=== PATIENT | female | born 1960 | race Caucasian/White ===

== ENCOUNTER 2017-05-06 21:03 | Emergency (ER) | payer MEDICAID | END 2017-05-06 22:03 | disposition home or self-care (01) | LOC: D.ER 21:03 | DX: R07.89 Other chest pain (principal); W10.9XXA Fall (on) (from) unspecified stairs and steps, initial encounter; Y93.89 Activity, other specified; Y92.029 Unspecified place in mobile home as the place of occurrence of the external cause ==

== ENCOUNTER 2017-07-15 16:17 | Emergency (ER) | payer MEDICAID | END 2017-07-15 18:09 | disposition home or self-care (01) | LOC: D.ER 16:17 | DX: S16.1XXA Strain of muscle, fascia and tendon at neck level, initial encounter (principal); X58.XXXA Exposure to other specified factors, initial encounter; Y93.89 Activity, other specified; Y92.89 Other specified places as the place of occurrence of the external cause; M79.602 Pain in left arm ==

== ENCOUNTER 2017-08-05 17:44 | Emergency (ER) | payer MEDICAID | END 2017-08-05 20:13 | disposition home or self-care (01) | LOC: D.ER 17:44 | DX: S43.402A Unspecified sprain of left shoulder joint, initial encounter (principal); W01.0XXA Fall on same level from slipping, tripping and stumbling without subsequent striking against object, initial encounter; Y93.89 Activity, other specified; Y92.019 Unspecified place in single-family (private) house as the place of occurrence of the external cause; S16.1XXA Strain of muscle, fascia and tendon at neck level, initial encounter ==

== ENCOUNTER 2017-08-26 15:04 | Emergency (ER) | payer MEDICAID | END 2017-08-26 17:34 | disposition left against medical advice (07) | LOC: D.ER 15:04 | DX: T23.072A Burn of unspecified degree of left wrist, initial encounter (principal); X10.1XXA Contact with hot food, initial encounter; Y93.89 Activity, other specified; Y92.019 Unspecified place in single-family (private) house as the place of occurrence of the external cause ==

== ENCOUNTER 2017-12-23 08:25 | Emergency (ER) | payer MEDICAID ==
[~2017-12-23] VITALS: Ht 162.6 cm; Wt 54.5 kg
[2017-12-23 08:30] VITALS: Ht 162.6 cm; Wt 54.5 kg
[2017-12-23] MEDS ORDERED: NORCO 7.5/325 T1 TA1 PO (10:02)
[2017-12-23 10:26] VITALS: BP 124/58
== END 2017-12-23 10:12 | disposition home or self-care (01) ==
LOC: D.ER 08:25
DX: S52.502A Unspecified fracture of the lower end of left radius, initial encounter for closed fracture (principal); W19.XXXA Unspecified fall, initial encounter; Y93.89 Activity, other specified; Y92.019 Unspecified place in single-family (private) house as the place of occurrence of the external cause

== ENCOUNTER 2018-01-03 00:54 | Emergency (ER) | payer MEDICAID ==
[~2018-01-03] VITALS: Ht 162.6 cm; Wt 56.8 kg
[~2018-01-03 00:54] MED LIST: NORCO 7.5/325 T1 TA1 PO
[2018-01-03 01:03] VITALS: Ht 162.6 cm; Wt 56.8 kg
[2018-01-03] MEDS ORDERED: TYLENOL W/CODEI1 TAB PO (01:42)
[2018-01-03] MEDS ORDERED: HYDROCODONE-APA1 TAB PO (01:50)
[2018-01-03 02:03] VITALS: BP 132/76
== END 2018-01-03 02:04 | disposition home or self-care (01) ==
LOC: D.ER 00:54
DX: S62.102G Fracture of unspecified carpal bone, left wrist, subsequent encounter for fracture with delayed healing (principal); W19.XXXD Unspecified fall, subsequent encounter; M25.552 Pain in left hip

== ENCOUNTER 2018-03-02 23:47 | Emergency (ER) | payer MEDICAID ==
[~2018-03-02] VITALS: Ht 162.6 cm; Wt 54.5 kg
[~2018-03-02 23:47] MED LIST changes: +HYDROCODONE-APA1 TAB PO; +TYLENOL W/CODEI1 TAB PO
[2018-03-02 23:52] VITALS: Ht 162.6 cm; Wt 54.5 kg
[2018-03-03] MEDS ORDERED: TORADOL10 MG PO (02:07)
[2018-03-03] MEDS ORDERED: ROBAXIN500 MG PO (02:07)
[2018-03-03 03:17] VITALS: BP 148/91
== END 2018-03-03 02:50 | disposition home or self-care (01) ==
LOC: D.ER 23:47
DX: S20.211A Contusion of right front wall of thorax, initial encounter (principal); S60.212A Contusion of left wrist, initial encounter; Y04.2XXA Assault by strike against or bumped into by another person, initial encounter; Y93.89 Activity, other specified; Y92.019 Unspecified place in single-family (private) house as the place of occurrence of the external cause

== ENCOUNTER 2019-10-14 18:50 | Inpatient (IN) | payer MEDICAID ==
[~2019-10-14] VITALS: Ht 170.2 cm; Wt 59.0 kg
[~2019-10-14 18:50] MED LIST changes: +ROBAXIN500 MG PO; +TORADOL10 MG PO
[2019-10-14 19:27] LABS: BASOPHILS 0.2 % (0-2); EOSINOPHILS 0.4 % (0-7); HEMATOCRIT 39.9 % (36.0-48.0); IMMATURE GRANULOCYTES 0.3 % (0-5); LYMPHOCYTES 19.6 % (15-50); MCHC 32.6 g/dL (31.0-37.0); MCV 82.8 fL (80.0-100.0); MEAN PLATELET VOLUME 8.6 fL (7.4-10.4); MONOCYTES 6.9 % (2-11); NEUTROPHILS 72.6 % (40-80); PLATELET COUNT 407 10x3/uL (130-400); RBC 4.82 10x6/uL (4.00-5.40); RDW 14.8 % (11.5-14.5); WBC 13.7 10x3/uL (4.8-10.8)
[2019-10-14 19:34] LABS: CALC OSMOLALITY 272 mosm/kg (275-300); CALCIUM 9.4 mg/dL (8.5-10.1); CARBON DIOXIDE 25.7 mmol/L (21.0-32.0); CHLORIDE - SERUM 99 mmol/L (98-107); CREATININE - SERUM 0.8 mg/dL (0.6-1.3); GLUCOSE 131 mg/dL (74-106); POTASSIUM - SERUM 3.1 mmol/L (3.5-5.1); SODIUM 135 mmol/L (136-145); UREA NITROGEN 14 mg/dL (7-18); eGFR NON AFRICAN AMERICAN 78 mL/min (90-120)
[2019-10-14 19:40] LABS: ALBUMIN 3.9 g/dL (3.4-5.0); ALKALINE PHOSPHATASE 96 U/L (30-120); ALT (SGPT) 12 U/L (10-68); BILIRUBIN - TOTAL 0.38 mg/dL (0.2-1.3); LIPASE 154 U/L (73-393); PROTEIN - SERUM 8.1 g/dL (6.4-8.2)
[2019-10-14 21:29] LABS: BILIRUBIN NEGATIVE (NEGATIVE); GLUCOSE NEGATIVE (NEGATIVE); KETONE NEGATIVE (NEGATIVE); NITRITE NEGATIVE (NEGATIVE); UROBILINOGEN NORMAL (NORMAL)
[2019-10-14 21:31] LABS: BACTERIA FEW /hpf (NEGATIVE); EPITHELIAL CELLS 0-5 /hpf (0-5); RED CELLS - URINE RARE /hpf (0-5)
--- NOTE | 2019-10-14 22:00 | NUR ---
PT C/O WANTED ME TO CONTACT ADAM HER LANDLORD [phone], NO ANSWER, MESSAGE LEFT.
--- NOTE | 2019-10-14 22:22 | NUR ---
RECEIVED PATIENT TO FLOOR. NGT TO THE RIGHT BARRIGA. PLACED TO LOW INTERMITTENT SUCTION. PATIENT IS DROWSY, BUT ANSWERS QUESTIONS APPROPRIATELY. LEFT AC IV THAT IS INFUSING NS. DENIES NEEDS AT THIS TIME. CPOC.
[2019-10-14 23:54] VITALS: BP 147/85; BMI 20.4
--- NOTE | 2019-10-15 00:59 | NUR ---
RESTING WITH EYES CLOSED. NGT IS SUCTIONING DARK GASTRIC CONTENTS. CPOC.
[2019-10-15 04:00] VITALS: BP 145/83
--- NOTE | 2019-10-15 08:00 | NUR ---
ALERT AND ORIENTED X4. PATINET HAS PERIODS OF ANXIETY WELL ABDOMINAL PAIN 6/10 WHICH IS RELEIVED WITH ATIVAN AND MORPHINE PRN. ABDOMEN SOFT WITH BOWEL SOUNDS NOTED WITH EPGASTIC PAIN.IVF INFUSING TO LEFT A/C WITH NO S/S OF INFECTION/INFILTRATION. ENCOURAGED TO USE CALL LIGHT FOR ASSSIT.
[2019-10-15 08:33] VITALS: BP 156/93
[2019-10-15 10:25] LABS: BASOPHILS 0.3 % (0-2); EOSINOPHILS 1.4 % (0-7); HEMATOCRIT 32.5 % (36.0-48.0); HEMOGLOBIN 10.5 g/dL (12-16); IMMATURE GRANULOCYTES 0.2 % (0-5); LYMPHOCYTES 34.5 % (15-50); MCH 26.8 pg (26.0-34.0); MCHC 32.3 g/dL (31.0-37.0); MCV 82.9 fL (80.0-100.0); MEAN PLATELET VOLUME 8.5 fL (7.4-10.4); MONOCYTES 7.1 % (2-11); NEUTROPHILS 56.5 % (40-80); RBC 3.92 10x6/uL (4.00-5.40); RDW 14.7 % (11.5-14.5); WBC 6.6 10x3/uL (4.8-10.8)
[2019-10-15 10:26] LABS: PLATELET COUNT 264 10x3/uL (130-400)
[2019-10-15 10:36] LABS: ALKALINE PHOSPHATASE 73 U/L (30-120); ALT (SGPT) 13 U/L (10-68); BILIRUBIN - TOTAL 0.38 mg/dL (0.2-1.3); CALCIUM 8.1 mg/dL (8.5-10.1); CARBON DIOXIDE 23.2 mmol/L (21.0-32.0); CHLORIDE - SERUM 109 mmol/L (98-107); CREATININE - SERUM 0.6 mg/dL (0.6-1.3); GLUCOSE 91 mg/dL (74-106); POTASSIUM - SERUM 3.5 mmol/L (3.5-5.1); PROTEIN - SERUM 6.1 g/dL (6.4-8.2); SODIUM 140 mmol/L (136-145); eGFR NON AFRICAN AMERICAN > 90 mL/min (90-120)
[2019-10-15 10:38] LABS: ALBUMIN 2.8 g/dL (3.4-5.0); CALC OSMOLALITY 277 mosm/kg (275-300); UREA NITROGEN 9 mg/dL (7-18)
[2019-10-15 11:30] VITALS: BP 134/78
--- NOTE | 2019-10-15 14:32 | NUR ---
CONFIGURATION TECHNICIAN KUB OBTAINED AT 14:19 FOR SMALL BOWEL SERIES TO CHECK FOR NG TUBE PLACEMENT BEFORE GIVEN CONTRAST. PER DR SALDIVAR VIA VERBAL , ADVANCE NG TUBE 4 CM BEFORE GIVING CONTRAST THRU NG TUBE. INSTRUCTIONS GIVEN TO NURSE CHERI AT 14.30.
[2019-10-15 16:00] VITALS: BP 138/80
--- NOTE | 2019-10-15 19:00 | NUR ---
BEDSIDE REPORT RECEIVED AND CARE OF PT ASSUMED. PT LYING IN LOW CALLAHAN'S POSITION WITH EYES CLOSED. NG TUBE TO RIGHT NARE CONNECTED TO LIS WITH SMALL AMOUNT OF DARK DRAINAGE IN COLLECTION CANNISTER. IV TO LEFT AC PATENT WITH MVI INFUSING AT 125 ML/HR.. WILL MONITOR FOR NEEDS.
[2019-10-15 19:37] VITALS: BP 139/76
--- NOTE | 2019-10-15 21:00 | NUR ---
SMALL BOWEL SERIES EXAM CLOSED . REEVALUATE FURTHER WITH A KUB IN 2 HRS @ 2300 FOR CONTRAST PURPOSES PER DR SALDIVAR. IF NEED , GET ADDITIONAL KUB IN THE AM ON 10/15.
--- NOTE | 2019-10-15 21:15 | NUR ---
LEAVING NG TUBE IN PLACE FOR TONIGHT PER RADIOLOGY, IN CASE ADDITIONAL PROCEDURE IS SCHEDULED FOR AM.
--- NOTE | 2019-10-15 23:15 | NUR ---
OFFERED TO START ENEMAS SEVERAL TIMES THIS SHIFT BUT PT DECLINES AND WANTS TO WAIT TILL ALL IMAGING IS COMPLETE. THEN WANTED TO HAVE PAIN / ANXIETY MED ON BOARD "FOR A WHILE" UNTIL WE COULD PROCEED.
--- NOTE | 2019-10-16 01:23 | NUR ---
ASSISTED PT UP TO RESTROOM TO VOID. ASKED PT IF I CAN PERFORM ENEMAS AT THIS TIME AND SHE REFUSED...WANTS TO WAIT TILL MORNING.
[2019-10-16 04:07] VITALS: BP 136/87
[2019-10-16 08:16] VITALS: BP 155/81
--- NOTE | 2019-10-16 09:25 | NUR ---
PT RESTING IN BED WITH EYES CLOSED. PT AWAKEN TO DISCONTINUE NG TUBE PER MD ORDERS. PT INITIALLY REFUSES, STATES, "YOU ARENT DOING IT UNTIL I CAN HAVE PAIN MEDICATION OR ATIVAN." INSTRUCTED PT DR ORDERS HAD BEEN RECEIVED TO DISCONTINUE NG TUBE AT THIS TIME AND PAIN MEDICATIONS WERE NOT DUE TO BE RECEIVED UNTIL AFTER 10 AM. PT AGREES TO ALLOW STAFF TO DISCONTINUE NG TUBE AT THIS TIME. NG REMOVED FROM RIGHT NARE TUBING INTACT. PT SHEREEN WELL. ALSO ADMINISTERED 2 DULCOLAX SUPPOSITORIES AT THIS TIME. PT CONTINUES TO REFUSE ENEMAS PREVIOUSLY ORDERED. IV TO LEFT AC WITH NS @ 125ML/HR INFUSING VIA PUMP. 500ML BOLUS INITIATED AT THIS TIME. CL WITHIN REACH. ENCOURAGED TO CALL WITH NEEDS. CONTINUE POC
[2019-10-16 10:07] LABS: ALBUMIN 2.9 g/dL (3.4-5.0); ALKALINE PHOSPHATASE 84 U/L (30-120); ALT (SGPT) 12 U/L (10-68); BILIRUBIN - TOTAL 0.48 mg/dL (0.2-1.3); CARBON DIOXIDE 23.8 mmol/L (21.0-32.0); CHLORIDE - SERUM 105 mmol/L (98-107); CREATININE - SERUM 0.6 mg/dL (0.6-1.3); POTASSIUM - SERUM 3.6 mmol/L (3.5-5.1); PROTEIN - SERUM 6.5 g/dL (6.4-8.2); SODIUM 136 mmol/L (136-145); eGFR NON AFRICAN AMERICAN > 90 mL/min (90-120)
[2019-10-16 10:10] LABS: CALC OSMOLALITY 270 mosm/kg (275-300); GLUCOSE 65 mg/dL (74-106); UREA NITROGEN 15 mg/dL (7-18)
[2019-10-16 10:16] LABS: BASOPHILS 0.2 % (0-2); EOSINOPHILS 0.7 % (0-7); HEMOGLOBIN 10.4 g/dL (12-16); IMMATURE GRANULOCYTES 0.2 % (0-5); LYMPHOCYTES 20.4 % (15-50); MCH 26.9 pg (26.0-34.0); MCHC 31.5 g/dL (31.0-37.0); MEAN PLATELET VOLUME 8.8 fL (7.4-10.4); MONOCYTES 7.5 % (2-11); RBC 3.87 10x6/uL (4.00-5.40); RDW 14.9 % (11.5-14.5)
[2019-10-16 10:17] LABS: MCV 85.3 fL (80.0-100.0); PLATELET COUNT 321 10x3/uL (130-400); WBC 8.5 10x3/uL (4.8-10.8)
--- NOTE | 2019-10-16 10:30 | NUR ---
PT RESTING WITH EYES CLOSED. RESP EVEN AND UNLABORED.
--- NOTE | 2019-10-16 11:30 | NUR ---
PT RESTING WITH EYES CLOSED. RESP EVEN AND UNLABORED.
--- NOTE | 2019-10-16 12:10 | NUR ---
PT SITTING UP IN BED CONSUMING CLEAR LIQUID DIET. PT INFORMED STAFF, "I'M HURTING AND MY ATIVAN WILL BE DUE AT 1230". INFORMED PT THAT PREVIOUSLY PRESCRIBED PAIN MEDICATION AND ATIVAN WERE ON HOLD AT THIS TIME. SHE VOICED "JULIETA GOT TO GET OUT OF HERE. I HAVENT HAD GOOD SLEEP LIKE THIS IN 12 OR 14 DAYS AND WITH THIS MEDICINE, I HAVE BEEN ABLE TO GET SOME SLEEP. IF IM NOT GOING TO GET THE MEDICINE I NEED THEN I AM GOING HOME." THEN PT REQUEST ANOTHER JELLO. ENCOURAGED TO TALK WITH MD UPON ROUNDING REGARDING MEDICATIONS. PT VOICES UNDERSTANDING AND SETTLES DOWN. DENIES FURTHER NEEDS AT THIS TIME. CL WITHIN REACH. ENCOURAGED TO CALL WITH NEEDS.
[2019-10-16 12:21] VITALS: Ht 170.2 cm; Wt 59.0 kg
[2019-10-16 13:39] VITALS: BP 129/82
[2019-10-16 16:20] VITALS: BP 144/89
--- NOTE | 2019-10-16 19:00 | NUR ---
BEDSIDE REPORT RECEIVED AND CARE OF PT ASSUMED. PT LYING IN SUPINE POSITION WITH EYES CLOSED. IV TO LEFT AC PATENT WITH NS INFUSING AT 125 ML/HR. WILL MONITOR FOR NEEDS.
[2019-10-16 20:00] VITALS: BP 150/77
--- NOTE | 2019-10-16 20:49 | NUR ---
HS MEDICATIONS GIVEN. WILL CONTINUE TO MONITOR FOR NEEDS.
--- NOTE | 2019-10-16 21:27 | NUR ---
PT MAD ABOUT PAIN / ANXIETY MEDS BEING DISCONTINUED. TRIED TO EDUCATE HER ON WHY SHE WAS HERE AND THAT NARCOTICS WILL WORSEN THE PROBLEM. VERY MAD AND YELLING AT THIS NURSE. WILL CONTINUE TO MONITOR FOR NEEDS.
--- NOTE | 2019-10-16 23:52 | NUR ---
RECEIVED ORDER FOR TYLENOL 650 PO Q6 PRN FOR PT C/O NECK PAIN. WILL MONITOR FOR EFFECTIVENESS.
[2019-10-17 04:00] VITALS: BP 121/68
[2019-10-17 05:10] LABS: ALBUMIN 2.4 g/dL (3.4-5.0); ALKALINE PHOSPHATASE 68 U/L (30-120); ALT (SGPT) 9 U/L (10-68); BASOPHILS 0.4 % (0-2); BILIRUBIN - TOTAL 0.33 mg/dL (0.2-1.3); CALCIUM 7.7 mg/dL (8.5-10.1); CARBON DIOXIDE 22.3 mmol/L (21.0-32.0); CHLORIDE - SERUM 107 mmol/L (98-107); CREATININE - SERUM 0.5 mg/dL (0.6-1.3); EOSINOPHILS 2.2 % (0-7); HEMATOCRIT 29.7 % (36.0-48.0); HEMOGLOBIN 9.5 g/dL (12-16); IMMATURE GRANULOCYTES 0.4 % (0-5); LYMPHOCYTES 39.4 % (15-50); MAGNESIUM - SERUM 1.9 mg/dL (1.8-2.4); MCH 26.4 pg (26.0-34.0); MEAN PLATELET VOLUME 10.2 fL (7.4-10.4); NEUTROPHILS 49.6 % (40-80); PHOSPHOROUS 2.5 mg/dL (2.5-4.9); POTASSIUM - SERUM 3.2 mmol/L (3.5-5.1); PROTEIN - SERUM 5.5 g/dL (6.4-8.2); RDW 14.5 % (11.5-14.5); SODIUM 139 mmol/L (136-145); eGFR NON AFRICAN AMERICAN > 90 mL/min (90-120)
[2019-10-17 05:11] LABS: MCV 82.5 fL (80.0-100.0); PLATELET COUNT 152 10x3/uL (130-400); WBC 5.1 10x3/uL (4.8-10.8)
[2019-10-17 05:19] LABS: CALC OSMOLALITY 275 mosm/kg (275-300); GLUCOSE 99 mg/dL (74-106); UREA NITROGEN 6 mg/dL (7-18)
--- NOTE | 2019-10-17 07:34 | NUR ---
AWAKE AND ALERT. ORIENTED X3. NO C/O AT THIS TIME. LUNGS ARE CLEAR BILATERALLY, NO COUGH NOTED. SKIN IS INTACT WITHOUT REDNESS. IV TO LEFT WRIST IS PATENT WITHOUT REDNESS AT INSERTION SITE. BOWEL SOUNDS POSITIVE. DENIES NEEDS.
[2019-10-17 08:55] VITALS: BP 119/75
--- NOTE | 2019-10-17 09:34 | NUR ---
GIVEN DULCOLAX SUPPOSITORY PER ORDERS ALONG WITH AM MEDS WITHOUT DIFFICULTY.
--- NOTE | 2019-10-17 10:00 | NUR ---
HAD LARGE VOLUMN OF DARK LOOSE STOOL. ASSISTED TO SHOWER PER STAFF. OFF UNIT VIA WC FOR CT.
--- NOTE | 2019-10-17 10:20 | NUR ---
RETURNED FROM CT SCAN. DENIES NEEDS.
[2019-10-17] MEDS ORDERED: FLORAJEN3 CAPS460 MG PO (16:30)
[2019-10-17 16:55] VITALS: BP 146/79
--- NOTE | 2019-10-17 17:09 | MORECARE ---
CASE MANAGEMENT DISCHARGE SUMMARY PATIENT: JUAN GOODSON UNIT: [id number] ADM DATE: 10/14/19 AGE: 59 : 60 SEX: F ROOM/BED: D.2204 AUTHOR: LEATHA VERMA PHYSICIAN: REFERRING PHYSICIAN: RONNELL SEGOVIA MD DATE OF SERVICE: 10/17/19 Discharge Plan Patient Name: JUAN GOODSON Facility: [facility]:[place] : 1960 Planned Disposition: Home Anticipated Discharge Date: Discharge Date: Expected LOS: Initial Reviewer: [email or web address] Initial Review Date: 10/14/2019 Generated: 10/17/19 6:09 pm Patient Name: JUAN GOODSON Page [phone] at 1700 All edits/amendments must be made on the electronic document DICTATION DATE: 10/17/191708 GRIP WRAPPER: TORSTEN 10/17/191708 RPT#: [id number] DC DATE: STATUS: ADM IN [facility] [address] [place] [address] END OF REPORT
--- NOTE | 2019-10-17 17:17 | MORECARE ---
CASE MANAGEMENT DISCHARGE SUMMARY PATIENT: JUAN GOODSON UNIT: [id number] ADM DATE: 10/14/19 AGE: 59 : 60 SEX: F ROOM/BED: D.2204 AUTHOR: LEATHA VERMA PHYSICIAN: REFERRING PHYSICIAN: RONNELL SEGOVIA MD DATE OF SERVICE: 10/17/19 Discharge Plan Patient Name: JUAN GOODSON Facility: [facility]:[place] : 1960 Planned Disposition: Home Anticipated Discharge Date: Discharge Date: Expected LOS: Initial Reviewer: [email or web address] Initial Review Date: 10/14/2019 Generated: 10/17/19 6:16 pm DCPIA - Discharge Planning Initial Assessment Updated by [email or web address]: Lia Lennon on 10/17/19 5:10 pm * Is the patient Alert and Oriented? Yes * How many steps to enter\exit or inside your home? * PCP MOHAN CASTRO * Pharmacy [facility] * Preadmission Environment Home Alone * ADLs Independent * Equipment None * List name and contact numbers for known caregivers / representatives who currently or will assist patient after discharge: ANDRIY MONTANO [facility] [phone] * Verbal permission to speak to the caregivers and representatives has been obtained from the patient. N/A * Community resources currently utilized None * Additional services required to return to the preadmission environment? No * Can the patient safely return to the preadmission environment? Yes * Has this patient been hospitalized within the prior 30 days at any hospital? No Last DP export: 10/17/19 4:09 p Patient Name: JUAN GOODSON Page [phone] at 1717 All edits/amendments must be made on the electronic document DICTATION DATE: 10/17/191715 EXECUTIVE SECRETARY SOCIAL WELFARE: TORSTEN 10/17/191715 RPT#: [id number] DC DATE: STATUS: ADM IN [facility] [address] [place] [address] END OF REPORT
--- NOTE | 2019-10-17 17:24 | MORECARE ---
CASE MANAGEMENT DISCHARGE SUMMARY PATIENT: JUAN GOODSON UNIT: [id number] ADM DATE: 10/14/19 AGE: 59 : 60 SEX: F ROOM/BED: D.2204 AUTHOR: LUCI,DOC PHYSICIAN: REFERRING PHYSICIAN: RONNELL SEGOVIA MD DATE OF SERVICE: 10/17/19 Discharge Plan Patient Name: JUAN GOODSON Facility: [facility]:[place] : 1960 Planned Disposition: Home Anticipated Discharge Date: Discharge Date: Expected LOS: Initial Reviewer: [email or web address] Initial Review Date: 10/14/2019 Generated: 10/17/19 6:24 pm Comments DCP- Discharge Planning Updated by [email or web address]: Lia Lennon on 10/17/19 4:[address] Patient Name: JUAN GOODSON Admission Status: ER Accout number: [id number] Admission Date: 10-14-2019 : 1960 Admission Diagnosis:UNSPECIFIED ABDOMINAL PAIN Attending: RONNELL SEGOVIA Current LOS: 3 Anticipated DC Date: Planned Disposition: Home Primary Insurance: MEDICAID [place] Discharge Planning Comments: CM met with patient to complete initial dc planning assessment. CM educated patient on the CM role and verbal consent given by patient to complete assessment. Patient lives at home alone. At discharge patient plans to return home and feels this is a safe discharge. CM discussed availability of home health, rehab services, and medical equipment. Patient denied known discharge needs at this time. Patient requested phone number to Social Security Office. CM looked up number and brought it back to patient. CM will continue to follow and will assist as needed with dc plans/needs. Reformatory Attendant: Lia Lennon DCPIA - Discharge Planning Initial Assessment Updated by [email or web address]: Lia Lennon on 10/17/19 5:10 pm * Is the patient Alert and Oriented? Yes * How many steps to enter\exit or inside your home? * PCP MOHAN CASTRO * Pharmacy [facility] * Preadmission Environment Home Alone * ADLs Independent * Equipment None * List name and contact numbers for known caregivers / representatives who currently or will assist patient after discharge: ANDRIY MONTANO - BROTHER - [phone] * Verbal permission to speak to the caregivers and representatives has been obtained from the patient. N/A * Community resources currently utilized None * Additional services required to return to the preadmission environment? No * Can the patient safely return to the preadmission environment? Yes * Has this patient been hospitalized within the prior 30 days at any hospital? No Last DP export: 10/17/19 4:17 p Patient Name: JUAN GOODSON Page [phone] at 1724 All edits/amendments must be made on the electronic document DICTATION DATE: 10/17/191723 PRE KINDERGARTEN TEACHER: TORSTEN 10/17/191723 RPT#: [id number] DC DATE: STATUS: ADM IN [facility] [address] [place] [address] END OF REPORT
--- NOTE | 2019-10-17 19:18 | NUR ---
PATIENT REPORTS SHE FEELS ONE OF HER EPISODES COMMING ON AND DOESN'T WANT TO GO HOME TONIGHT. ALSO SAYS SOME NAUSEA AFTER EATING. DENIES NEEDS. NO CHANGES NOTED.
[2019-10-17 23:40] VITALS: BP 141/88
[2019-10-18 00:30] VITALS: BP 145/97
--- NOTE | 2019-10-18 02:02 | NUR ---
CALLED TO PATIENTS ROOM, BY VETERINARY INSPECTOR STATED THAT PT STATED SHE WANTED TO HAVE HERE IV FLUIDS TRUNED OFF SO SHE COULD GET SICK. WENT TO ROOM PT. STATED THAT SHE WANTED HER IV UNHOOKED SO SHE COULD GET SICK. EDUCATED PT THAT SHE NEEDED HER IV FLUIDS THAT THE DR ORDERED THEM FOR A REASION. I CAN'T JUST STOP GIVING THEM TO YOU. SHE STATED YOU CAN IF I REFUSE THEM AND I DO. I WANT TO GET SICK SO THEY CAN SEE THAT I GET SICK. IV TRUNED OFF.
--- NOTE | 2019-10-18 02:40 | NUR ---
CALL TO SPORTS COORDINATOR FOR B/P OF 145/97 NEW ORDER FOR HYDRALAZINE 10MD PO Q 6 HR PRN FOR SBP GREATER THAN 170 OR DBP GREATER THAN 100. INFOREME OD PT REFUSAL TO KEEP IV WITH FLUIDS RUNNING.
--- NOTE | 2019-10-18 04:18 | NUR ---
PT UP AND DOWN TO VENDING BACK WITH POPCORN,CANDY, AND SODA. THIS IS 2ED TIME THIS SHIFT.
--- NOTE | 2019-10-18 04:28 | NUR ---
REFUSED AM LABS
[2019-10-18 04:30] VITALS: BP 153/88
--- NOTE | 2019-10-18 07:25 | NUR ---
PT IS RESTING IN BED WITH EYES CLOSED. RESPIRATIONS ARE EVEN AND UNLABORED. PT IS EASILY AROUSED WITH VERBAL STIMULATION. PT IS AAO X 4 UPON AROUSAL. PT STATES "WHEN WILL THE DR BE AROUND. IM NOT GOING TO BE HERE FOR VERY LONG". PT EDUCATED ON PLAN OF CARE AND PT VERBALIZES UNDERSTANDING. PT DENIES PRESENCE OF PAIN/N/V/DYSPNEA AT THIS TIME. PT REPORTS HAVING HAD MULTIPLE BM "YESTERDAY" (10/17/2019) AND DENIES HAVING HAD A RECENT BM. PT DENIES PRESENCE OF PAIN/N/V AT THIS TIME. BED IS IN THE LOWEST POSITION. CALL LIGHT AND BEDSIDE TABLE ARE WITHIN REACH. SIDE RAILS X 2. PT DENIES FURTHER NEEDS. WILL CONT TO MONITOR.
--- NOTE | 2019-10-18 07:46 | NUR ---
WAI WITH IR CALLED AND STATES HOLD LOVENOX FOR POSSIBLE ARTERIALGRAM LATER TODAY.
[2019-10-18 08:00] VITALS: BP 132/77
--- NOTE | 2019-10-18 09:58 | NUR ---
PT REFUSING ALL MEDICATION. PT STATES "THEY STARTED TREATING ME AND TREATED WHAT THEY SAY IN THE IMAGES AND MADE MY SYMPTOMS GO AWAY BUT THEY HAVEN'T SEEN ME ACTUALLY BE SICK. I WANT THEM TO SEE ME BE SICK BECAUSE I KNOW THAT IT IS GOING TO COME BACK". PT INFORMED AND EDUCATED ON PLAN OF CARE AND MEDICATION AND TREATMENT. PT VERBALIZES UNDERSTANDING AND CONTINUES TO REFUSE MEDICATIONS. PT STATES "IM REFUSING BECAUSE I THINK THEY NEED TO SEE HOW I GET SO THAT THEY CAN TREAT ME CORRECTLY". PT DENIES FURTHER NEEDS. WILL CONT TO MONITOR.
--- NOTE | 2019-10-18 10:13 | NUR ---
ALL DISCHARGE INSTRUCTIONS COVERED WITH PT. PT DENIES FURTHER QUESTIONS/CONCERNS/NEEDS AT THIS TIME. ALL DISCHARGE PAPERS SIGNED. PIV REMOVED FROM LEFT AC WITH CATHETER TIP INTACT. DRESSING APPLIED. PT IMMEDIATELY REMOVED DRESSING TO IV INSERTION SITE STATING THAT "THE TAPE GONSALVES MY SKIN". PT INSTRUCTED TO APPLY PRESSURE IF BLEEDING OCCURS AND NOTIFY NURSE. PT TO NOTIFY NURSE WHEN TRANSPORTATION ARRIVES.
--- NOTE | 2019-10-18 12:56 | NUR ---
PT STATES "I HAVE MY OWN CAR HERE IN THE PARKING LOT. MY DAUGHTER JUST TOLD ME THAT SHE LEFT IT THERE SO I'LL BE LEAVING NOW". PT REFUSES WHEELCHAIR ASSISTANCE AND AMBUALTES FREELY AND WITHOUT DIFFICULTY WITH ALL PERSONAL BELONGINGS. PT THANKS THIS NURSE FOR CARE GIVEN DURING THIS SHIFT AND DENIES FURTHER QUESTIONS/NEEDS/CONCERNS AT THIS TIME.
--- NOTE | 2019-10-18 20:11 | MORECARE ---
CASE MANAGEMENT DISCHARGE SUMMARY PATIENT: JUAN GOODSON UNIT: [id number] ADM DATE: 10/14/19 AGE: 59 : 60 SEX: F ROOM/BED: D.2204 AUTHOR: LUCI,DOC PHYSICIAN: REFERRING PHYSICIAN: RONNELL SEGOVIA MD DATE OF SERVICE: 10/18/19 Discharge Plan Patient Name: JUAN GOODSON Facility: [facility]:[place] : 1960 Planned Disposition: Home Anticipated Discharge Date: Discharge Date: 10/18/2019 Expected LOS: Initial Reviewer: [email or web address] Initial Review Date: 10/14/2019 Generated: 10/18/19 9:11 pm Comments DCP- Discharge Planning Updated by [email or web address]: Lia Lennon on 10/17/19 4:[address] Patient Name: JUAN GOODSON Admission Status: ER Accout number: [id number] Admission Date: 10-14-2019 : 1960 Admission Diagnosis:UNSPECIFIED ABDOMINAL PAIN Attending: RONNELL SEGOVIA Current LOS: 3 Anticipated DC Date: Planned Disposition: Home Primary Insurance: MEDICAID [place] Discharge Planning Comments: CM met with patient to complete initial dc planning assessment. CM educated patient on the CM role and verbal consent given by patient to complete assessment. Patient lives at home alone. At discharge patient plans to return home and feels this is a safe discharge. CM discussed availability of home health, rehab services, and medical equipment. Patient denied known discharge needs at this time. Patient requested phone number to Social Security Office. CM looked up number and brought it back to patient. CM will continue to follow and will assist as needed with dc plans/needs. Floatlight Powder Mixer: Lia Lennon DCPIA - Discharge Planning Initial Assessment Updated by [email or web address]: Lia Lennon on 10/17/19 5:10 pm * Is the patient Alert and Oriented? Yes * How many steps to enter\exit or inside your home? * PCP MOHAN CASTRO * Pharmacy [facility] * Preadmission Environment Home Alone * ADLs Independent * Equipment None * List name and contact numbers for known caregivers / representatives who currently or will assist patient after discharge: ANDRIY MONTANO [phone] * Verbal permission to speak to the caregivers and representatives has been obtained from the patient. N/A * Community resources currently utilized None * Additional services required to return to the preadmission environment? No * Can the patient safely return to the preadmission environment? Yes * Has this patient been hospitalized within the prior 30 days at any hospital? No Last DP export: 10/17/19 4:24 p Patient Name: JUAN GOODSON Page [phone] at 2010 All edits/amendments must be made on the electronic document DICTATION DATE: 10/18/192010 LEAD WEB APPLICATION DEVELOPER: TORSTEN 10/18/192010 RPT#: [id number] DC DATE:10/18/19 STATUS: DIS IN [facility] [address] [place] [address] END OF REPORT
== END 2019-10-18 12:58 | disposition home or self-care (01) | DRG 394 ==
LOC: D.ER 18:50 → D.MS 21:23
PROVIDERS: Family Medicine; ADMIT Internal Medicine Nephrology; ATTEND Internal Medicine Nephrology
DX: K91.89 Other postprocedural complications and disorders of digestive system (principal); K31.6 Fistula of stomach and duodenum; K56.600 Partial intestinal obstruction, unspecified as to cause; E87.1 Hypo-osmolality and hyponatremia; Y84.9 Medical procedure, unspecified as the cause of abnormal reaction of the patient, or of later complication, without mention of misadventure at the time of the procedure; I10 Essential (primary) hypertension; F41.9 Anxiety disorder, unspecified; K59.00 Constipation, unspecified; E87.6 Hypokalemia; G89.29 Other chronic pain; M54.9 Dorsalgia, unspecified

== ENCOUNTER 2019-10-21 18:54 | Emergency (ER) | payer MEDICAID ==
[~2019-10-21] VITALS: Ht 170.2 cm; Wt 61.4 kg
[~2019-10-21 18:54] MED LIST changes: +FLORAJEN3 CAPS460 MG PO
[2019-10-21 19:03] VITALS: Ht 170.2 cm; Wt 61.4 kg
[2019-10-21] MEDS ORDERED: MOTRIN (19:04)
[2019-10-21 19:40] LABS: BASOPHILS 0.4 % (0-2); HEMATOCRIT 33.7 % (36.0-48.0); HEMOGLOBIN 10.7 g/dL (12-16); IMMATURE GRANULOCYTES 0.1 % (0-5); LYMPHOCYTES 42.7 % (15-50); MCH 26.8 pg (26.0-34.0); MCHC 31.8 g/dL (31.0-37.0); MCV 84.3 fL (80.0-100.0); MEAN PLATELET VOLUME 8.4 fL (7.4-10.4); MONOCYTES 6.4 % (2-11); NEUTROPHILS 48.4 % (40-80); RDW 15.1 % (11.5-14.5); WBC 6.9 10x3/uL (4.8-10.8)
[2019-10-21 19:41] LABS: PLATELET COUNT 365 10x3/uL (130-400)
[2019-10-21 19:49] LABS: CALC OSMOLALITY 274 mosm/kg (275-300); CALCIUM 8.8 mg/dL (8.5-10.1); CARBON DIOXIDE 25.5 mmol/L (21.0-32.0); CHLORIDE - SERUM 101 mmol/L (98-107); CREATININE - SERUM 0.8 mg/dL (0.6-1.3); GLUCOSE 112 mg/dL (74-106); POTASSIUM - SERUM 3.7 mmol/L (3.5-5.1); SODIUM 136 mmol/L (136-145); UREA NITROGEN 17 mg/dL (7-18); eGFR NON AFRICAN AMERICAN 78 mL/min (90-120)
[2019-10-21 19:58] LABS: ALBUMIN 3.5 g/dL (3.4-5.0); ALKALINE PHOSPHATASE 79 U/L (30-120); ALT (SGPT) 16 U/L (10-68); BILIRUBIN - TOTAL 0.35 mg/dL (0.2-1.3); LIPASE 130 U/L (73-393); MAGNESIUM - SERUM 2.1 mg/dL (1.8-2.4); PROTEIN - SERUM 7.1 g/dL (6.4-8.2)
[2019-10-21 20:01] LABS: TROPONIN-I < 0.017 ng/mL (0.000-0.060)
[2019-10-21 22:21] VITALS: BP 130/77
== END 2019-10-21 22:26 | disposition home or self-care (01) ==
LOC: D.ER 18:54
PROVIDERS: Family Medicine
DX: R10.13 Epigastric pain (principal); Z98.890 Other specified postprocedural states; I10 Essential (primary) hypertension; R11.2 Nausea with vomiting, unspecified

== ENCOUNTER 2019-10-24 17:31 | Emergency (ER) | payer MEDICAID ==
[~2019-10-24] VITALS: Ht 170.2 cm; Wt 61.4 kg
[~2019-10-24 17:31] MED LIST changes: +MOTRIN
[2019-10-24 17:38] VITALS: BP 153/92; Ht 170.2 cm; Wt 61.4 kg
== END 2019-10-24 17:55 | disposition left against medical advice (07) ==
LOC: D.ER 17:31
DX: F29 Unspecified psychosis not due to a substance or known physiological condition (principal); R10.9 Unspecified abdominal pain; F22 Delusional disorders

== ENCOUNTER 2020-04-05 14:10 | Emergency (ER) | payer MEDICAID ==
[~2020-04-05] VITALS: Ht 170.2 cm; Wt 68.2 kg
[2020-04-05 14:18] VITALS: BP 149/82; Ht 170.2 cm; Wt 68.2 kg
== END 2020-04-05 14:28 | disposition left against medical advice (07) ==
LOC: D.ER 14:10
DX: S50.11XA Contusion of right forearm, initial encounter (principal); W19.XXXA Unspecified fall, initial encounter; I10 Essential (primary) hypertension; M25.552 Pain in left hip; Z91.14 Patient's other noncompliance with medication regimen